=== PATIENT | male | born 1945 | race Caucasian/White ===

== ENCOUNTER 2022-07-07 10:14 | Inpatient (IN) | payer MEDICARE, MEDICAID ==
[~2022-07-07] VITALS: Ht 160 cm; Wt 95.3 kg
[2022-07-07 11:10] LABS: BASOPHILS % 0.5 % (0.0-2.0); EOSINOPHILS % 2.4 % (0.0-5.0); HEMATOCRIT. 45.7 % (42.0-52.0); HEMOGLOBIN. 14.5 g/dL (14.0-18.0); LYMPHOCYTES % 14.9 % (20.0-50.0); MEAN CORPUSCULAR HEMOGLOBIN 31.3 pg (28.0-32.0); MEAN CORPUSCULAR VOLUME 98.4 fL (80.0-94.0); MEAN PLATELET VOLUME 9.4 fl (7.4-10.4); MONOCYTES % 13.8 % (2.0-8.0); NEUTROPHILS % 68.4 % (40.0-76.0); PLATELET 155 x1000/uL (130-400); RED BLOOD CELL COUNT 4.64 mill/uL (4.7-6.1); RED CELL DISTRIBUTION WIDTH 14.3 % (11.6-14.6)
[2022-07-07 11:17] LABS: CHLORIDE 112 mEq/L (98-107)
[2022-07-07 11:19] LABS: INR 1.2; PROTHROMBIN TIME 12.3 sec (9.6-11.0)
[2022-07-07] MEDS ORDERED: CALCIUM GLUCONATE 100MG/ML 10ML VIAL IV ONE (12:00)
[2022-07-07] MEDS ORDERED: FUROSEMIDE 40MG/4ML VIAL IV ONE (13:15)
[2022-07-07] MEDS ORDERED: NITROGLYCERIN OINT 1GM/INCH UDPKT TD ONE (13:15)
[2022-07-07] MEDS ORDERED: ASPIRIN 325MG EC TABLET PO ONE (13:30)
[2022-07-07] MEDS ORDERED: IPRATROPIUM/ALBUTEROL 0.5-3(2.5)MG/3ML NEB HHN PRN (15:00)
[2022-07-07] MEDS ORDERED: GUAIFENESIN 200MG/10ML SUGAR FREE UDC PO PRN (15:00)
[2022-07-07] MEDS ORDERED: ONDANSETRON HCL 4MG/2ML INJ IV PRN (15:00)
[2022-07-07] MEDS ORDERED: MAGNESIUM/ALUMINUM HYDROXIDE/SIMETHICONE 30ML UDC PO PRN (15:00)
[2022-07-07] MEDS ORDERED: DIPHENHYDRAMINE 50MG/ML VIAL IV PRN (15:00)
[2022-07-07] MEDS ORDERED: ACETAMINOPHEN 325MG TABLET PO PRN (15:00)
[2022-07-07] MEDS ORDERED: CLONIDINE 0.1MG TABLET PO PRN (15:00)
[2022-07-07] MEDS ORDERED: DOCUSATE SODIUM 100MG CAPSULE PO PRN (15:00)
[2022-07-07] MEDS ORDERED: IOHEXOL-350 100 ML BOTTLE ONE (17:05)
[2022-07-07] MEDS ORDERED: FUROSEMIDE 40MG/4ML VIAL IV SCH (17:15)
[2022-07-07] MEDS: POTASSIUM CHLORIDE 20MEQ TABLET SR PO SCH (17:19)
[2022-07-07] MEDS: FUROSEMIDE 40MG/4ML VIAL IV SCH (17:21)
[2022-07-07] MEDS ORDERED: HYDROCODONE/ACETAMINOPHEN 5/325MG TABLET PO PRN (17:30)
[2022-07-07] MEDS ORDERED: NALOXONE HCL 0.4MG/ML VIAL IV PRN (17:30)
[2022-07-07 17:31] LABS: CLARITY URINE CLEAR (CLEAR); COLOR URINE YELLOW (YELLOW); KETONES URINE NEGATIVE (NEGATIVE); LEUKOCYTE ESTERASE URINE NEGATIVE (NEGATIVE); NITRITE URINE NEGATIVE (NEGATIVE); OCCULT BLOOD URINE NEGATIVE (NEGATIVE); PROTEIN URINE NEGATIVE (NEGATIVE); SPECIFIC GRAVITY URINE 1.006 (1.005-1.030); UROBILINOGEN URINE 0.2 E.U./dL (0.2-1.0)
[2022-07-07 17:52] LABS: *AMPHETAMINES SCREEN URINE NEGATIVE (NEGATIVE); *BARBITURATES SCREEN URINE NEGATIVE (NEGATIVE); *BENZODIAZEPINES SCREEN URINE NEGATIVE (NEGATIVE); *COCAINE SCREEN URINE NEGATIVE (NEGATIVE); CANNABINOID URINE SCREEN NEGATIVE (NEGATIVE); METHADONE URINE SCREEN NEGATIVE (NEGATIVE); OPIATES URINE SCREEN NEGATIVE (NEGATIVE); PHENCYCLIDINE URINE SCREEN NEGATIVE (NEGATIVE)
[2022-07-07] MEDS: METOPROLOL TARTRATE 25MG TABLET PO SCH (21:34)
[2022-07-07] MEDS: FAMOTIDINE 20MG TABLET PO SCH (21:35)
[2022-07-07] MEDS: ENOXAPARIN 30MG/0.3ML SYR SUBCUT SCH (21:35)
[2022-07-08] VITALS: BP 108/70
[2022-07-08 01:31] LABS: CREATINE KINASE 133 IU/L (39-308)
[2022-07-08] MEDS ORDERED: ATOR40TA70 PO (03:14)
[2022-07-08] MEDS ORDERED: METO25TA6 PO (03:14)
[2022-07-08] MEDS ORDERED: LOSA50TA41 PO (03:14)
[2022-07-08] MEDS ORDERED: TAMS-11 PO (03:15)
[2022-07-08 04:00] VITALS: BP 121/63
[2022-07-08] MEDS: FUROSEMIDE 40MG/4ML VIAL IV SCH ×2 (07:00→16:54)
[2022-07-08 07:11] LABS: HEMATOCRIT. 45.4 % (42.0-52.0); HEMOGLOBIN. 14.7 g/dL (14.0-18.0); MEAN CORPUSCULAR HEMOGLOBIN 31.7 pg (28.0-32.0); MEAN CORPUSCULAR VOLUME 97.9 fL (80.0-94.0); PLATELET 148 x1000/uL (130-400); RED BLOOD CELL COUNT 4.64 mill/uL (4.7-6.1); RED CELL DISTRIBUTION WIDTH 14.3 % (11.6-14.6)
[2022-07-08 07:22] LABS: CHLORIDE 92 mEq/L (98-107)
[2022-07-08 07:39] LABS: CREATINE KINASE 121 IU/L (39-308)
[2022-07-08 07:40] LABS: T4 FREE 1.06 ng/dL (0.76-1.46)
[2022-07-08 08:00] VITALS: BP 100/49
[2022-07-08] MEDS ORDERED: ASPIRIN 325MG EC TABLET PO SCH (09:00)
[2022-07-08] MEDS: METOPROLOL TARTRATE 25MG TABLET PO SCH ×2 (09:00→20:38)
[2022-07-08] MEDS ORDERED: LOSARTAN POTASSIUM 50 MG TABLET PO SCH (09:00)
[2022-07-08] MEDS: ENOXAPARIN 30MG/0.3ML SYR SUBCUT SCH (09:13)
[2022-07-08] MEDS: POTASSIUM CHLORIDE 20MEQ TABLET SR PO SCH (09:13)
[2022-07-08] MEDS: TAMSULOSIN HCL 0.4MG SR CAPSULE PO SCH (09:14)
[2022-07-08 12:00] VITALS: BP 110/50
[2022-07-08 14:01] LABS: PLATELET ESTIMATE NORMAL
[2022-07-08] MEDS ORDERED: CALCIUM GLUCONATE 1GM PREMIX 50 ML IV ONE (15:00)
[2022-07-08] MEDS ORDERED: MECLIZINE 12.5MG TABLET PO PRN (15:30)
[2022-07-08 16:00] VITALS: BP 96/51
[2022-07-08] MEDS ORDERED: POTASSIUM CHLORIDE 20MEQ TABLET SR PO SCH (17:00)
[2022-07-08 20:00] VITALS: BP 94/51
[2022-07-08] MEDS: FAMOTIDINE 20MG TABLET PO SCH (20:39)
[2022-07-08] MEDS: ACETAMINOPHEN 325MG TABLET PO PRN (20:40)
[2022-07-09] VITALS: BP 103/51
[2022-07-09 04:00] VITALS: BP_SYST 104; BP_SYST 108; BP_SYST 91; BP_DIAS 49; BP_DIAS 58; BP_DIAS 62
[2022-07-09] MEDS: FUROSEMIDE 40MG/4ML VIAL IV SCH (06:11)
[2022-07-09 07:05] LABS: HEMATOCRIT. 44.5 % (42.0-52.0); HEMOGLOBIN. 14.3 g/dL (14.0-18.0); MEAN CORPUSCULAR HEMOGLOBIN 31.4 pg (28.0-32.0); MEAN CORPUSCULAR VOLUME 97.9 fL (80.0-94.0); MEAN PLATELET VOLUME 9.2 fl (7.4-10.4); PLATELET 154 x1000/uL (130-400); RED BLOOD CELL COUNT 4.55 mill/uL (4.7-6.1); RED CELL DISTRIBUTION WIDTH 13.9 % (11.6-14.6)
[2022-07-09 07:15] LABS: CHLORIDE 92 mEq/L (98-107)
[2022-07-09] MEDS ORDERED: SODIUM POLYSTYRENE SULFONATE 15 G/60 ML BOT PO NR (09:00)
[2022-07-09 09:13] VITALS: BP 120/74
[2022-07-09] MEDS: LOSARTAN POTASSIUM 25 MG TABLET PO SCH (09:15)
[2022-07-09] MEDS: TAMSULOSIN HCL 0.4MG SR CAPSULE PO SCH (09:15)
[2022-07-09] MEDS: METOPROLOL TARTRATE 25MG TABLET PO SCH ×2 (09:19→21:00)
[2022-07-09] MEDS: ENOXAPARIN 40MG/0.4ML SYR SUBCUT SCH (09:20)
[2022-07-09 10:51] LABS: BG BASE EXCESS 20.1 mmol/L (-2.0-2.0); BG CARBOXYHEMOGLOBIN 2.4 % (0.5-1.5); BG DEOXYHEMOGLOBIN 23.5 % (0.0-5.0); BG HCO3 ACT 52.1 mmol/L (22.0-26.0); BG METHEMOGLOBIN 0.3 % (0.0-1.5); BG OXYGEN SATURATION 75.8 % (92.0-98.5); BG OXYHEMOGLOBIN 73.8 % (94.0-97.0); BG PCO2 97.5 mmHg (35.0-45.0); BG PH 7.346 (7.350-7.450); BG PO2 44.3 mmHg (75.0-100.0); BG SAMPLE SITE RIGHT RADIAL; BG TOTAL HEMOGLOBIN 15.6 g/dL (12.0-18.0); BG VENT MODE ROOM AIR
[2022-07-09 12:00] VITALS: BP 116/68
[2022-07-09 16:00] VITALS: BP 117/63
[2022-07-09] MEDS: FUROSEMIDE 40MG TABLET PO SCH (17:52)
[2022-07-09 20:00] VITALS: BP 100/61
[2022-07-09] MEDS: FAMOTIDINE 20MG TABLET PO SCH (21:00)
[2022-07-09 23:29] LABS: PLATELET ESTIMATE NORMAL
[2022-07-10] VITALS: BP 126/70
[2022-07-10 04:00] VITALS: BP 126/79
[2022-07-10] MEDS: FUROSEMIDE 40MG TABLET PO SCH ×2 (05:50→08:37)
[2022-07-10 06:44] LABS: CHLORIDE 89 mEq/L (98-107)
[2022-07-10 06:58] LABS: PHOSPHORUS 3.6 mg/dL (2.5-4.9)
[2022-07-10 07:26] LABS: HEMATOCRIT. 43.7 % (42.0-52.0); HEMOGLOBIN. 14.1 g/dL (14.0-18.0); MEAN CORPUSCULAR HEMOGLOBIN 31.5 pg (28.0-32.0); MEAN CORPUSCULAR VOLUME 97.1 fL (80.0-94.0); MEAN PLATELET VOLUME 10.1 fl (7.4-10.4); PLATELET 132 x1000/uL (130-400); RED CELL DISTRIBUTION WIDTH 14.1 % (11.6-14.6)
[2022-07-10] MEDS ORDERED: NITROGLYCERIN 0.4MG TABLET SL SL PRN (08:00)
[2022-07-10 08:22] VITALS: BP 96/54
[2022-07-10] MEDS: LOSARTAN POTASSIUM 25 MG TABLET PO SCH (08:35)
[2022-07-10] MEDS: METOPROLOL TARTRATE 25MG TABLET PO SCH ×2 (08:35→21:04)
[2022-07-10] MEDS: ENOXAPARIN 40MG/0.4ML SYR SUBCUT SCH (08:37)
[2022-07-10] MEDS: TAMSULOSIN HCL 0.4MG SR CAPSULE PO SCH (08:37)
[2022-07-10] MEDS: IPRATROPIUM/ALBUTEROL 0.5-3(2.5)MG/3ML NEB HHN SCH ×2 (09:27→14:05)
[2022-07-10 09:28] LABS: BG BASE EXCESS 20.6 mmol/L (-2.0-2.0); BG CARBOXYHEMOGLOBIN 2.6 % (0.5-1.5); BG DEOXYHEMOGLOBIN 3.6 % (0.0-5.0); BG FRACTION INSPIRED OXYGEN 36; BG HCO3 ACT 53.4 mmol/L (22.0-26.0); BG METHEMOGLOBIN 0.2 % (0.0-1.5); BG OXYGEN SATURATION 96.3 % (92.0-98.5); BG OXYHEMOGLOBIN 93.6 % (94.0-97.0); BG PCO2 102.4 mmHg (35.0-45.0); BG PH 7.335 (7.350-7.450); BG PO2 91.3 mmHg (75.0-100.0); BG SAMPLE SITE RIGHT BRACHIAL; BG VENT MODE NASAL CANNULA
[2022-07-10] MEDS ORDERED: PREDNISONE 20MG TABLET PO SCH (11:15)
[2022-07-10] MEDS: AZITHROMYCIN 500 MG in DEXT 5% WATER 250 ML IV SCH (12:01)
[2022-07-10 12:12] VITALS: BP 109/58
[2022-07-10] MEDS ORDERED: ACETAZOLAMIDE SODIUM 500MG/VIAL IV NR (14:00)
[2022-07-10 14:28] LABS: PLATELET ESTIMATE NORMAL
[2022-07-10 16:00] VITALS: BP 99/48
[2022-07-10] MEDS: FAMOTIDINE 20MG TABLET PO SCH (21:04)
[2022-07-11] VITALS: BP 105/63
[2022-07-11 04:00] VITALS: BP 92/56
[2022-07-11 06:39] LABS: BASOPHILS % 0.2 % (0.0-2.0); HEMOGLOBIN. 14.7 g/dL (14.0-18.0); LYMPHOCYTES % 9.8 % (20.0-50.0); MEAN CORPUSCULAR HEMOGLOBIN 31.9 pg (28.0-32.0); MEAN CORPUSCULAR VOLUME 97.8 fL (80.0-94.0); MEAN PLATELET VOLUME 10.6 fl (7.4-10.4); PLATELET 166 x1000/uL (130-400)
[2022-07-11 06:41] LABS: CHLORIDE 89 mEq/L (98-107)
[2022-07-11 08:00] VITALS: BP 91/67
[2022-07-11 08:00] LABS: BG BASE EXCESS 17.7 mmol/L (-2.0-2.0); BG CARBOXYHEMOGLOBIN 1.7 % (0.5-1.5); BG DEOXYHEMOGLOBIN 26.6 % (0.0-5.0); BG FRACTION INSPIRED OXYGEN 21; BG HCO3 ACT 49.7 mmol/L (22.0-26.0); BG METHEMOGLOBIN 0.4 % (0.0-1.5); BG OXYGEN SATURATION 72.8 % (92.0-98.5); BG OXYHEMOGLOBIN 71.3 % (94.0-97.0); BG PCO2 98.2 mmHg (35.0-45.0); BG PH 7.322 (7.350-7.450); BG PO2 39.8 mmHg (75.0-100.0); BG SAMPLE SITE LEFT BRACHIAL; BG TOTAL HEMOGLOBIN 15.5 g/dL (12.0-18.0); BG VENT MODE ROOM AIR
[2022-07-11] MEDS: LOSARTAN POTASSIUM 25 MG TABLET PO SCH (09:00)
[2022-07-11] MEDS: METOPROLOL TARTRATE 25MG TABLET PO SCH ×2 (09:00→21:11)
[2022-07-11] MEDS: PREDNISONE 20MG TABLET PO SCH (10:47)
[2022-07-11] MEDS: TAMSULOSIN HCL 0.4MG SR CAPSULE PO SCH (10:49)
[2022-07-11] MEDS: ENOXAPARIN 40MG/0.4ML SYR SUBCUT SCH (10:49)
[2022-07-11 12:00] VITALS: BP 112/61
[2022-07-11] MEDS: AZITHROMYCIN 500 MG in DEXT 5% WATER 250 ML IV SCH (13:08)
[2022-07-11 14:17] LABS: BG DEOXYHEMOGLOBIN 4.1 % (0.0-5.0); BG FRACTION INSPIRED OXYGEN 50; BG HCO3 ACT 50.1 mmol/L (22.0-26.0); BG METHEMOGLOBIN 0.2 % (0.0-1.5); BG OXYGEN SATURATION 95.8 % (92.0-98.5); BG OXYHEMOGLOBIN 93.7 % (94.0-97.0); BG PCO2 111.3 mmHg (35.0-45.0); BG PH 7.271 (7.350-7.450); BG PO2 87.3 mmHg (75.0-100.0); BG SAMPLE SITE LEFT BRACHIAL; BG VENT MODE VAPOTHERM
[2022-07-11 16:00] VITALS: BP 111/67
[2022-07-11 20:00] VITALS: BP 105/59
[2022-07-11] MEDS: FAMOTIDINE 20MG TABLET PO SCH (21:11)
[2022-07-11] MEDS: MEMANTINE HCL 10MG TABLET PO SCH (21:11)
[2022-07-12] VITALS: BP 108/58
[2022-07-12 04:00] VITALS: BP 111/55
[2022-07-12 07:30] LABS: CHLORIDE 93 mEq/L (98-107)
[2022-07-12 07:33] LABS: BASOPHILS % 0.2 % (0.0-2.0); EOSINOPHILS % 0.1 % (0.0-5.0); HEMATOCRIT. 43.4 % (42.0-52.0); HEMOGLOBIN. 14.2 g/dL (14.0-18.0); LYMPHOCYTES % 9.6 % (20.0-50.0); MEAN CORPUSCULAR HEMOGLOBIN 31.6 pg (28.0-32.0); MEAN CORPUSCULAR VOLUME 96.8 fL (80.0-94.0); MEAN PLATELET VOLUME 10.1 fl (7.4-10.4); MONOCYTES % 10.7 % (2.0-8.0); NEUTROPHILS % 79.4 % (40.0-76.0); PLATELET 177 x1000/uL (130-400); RED BLOOD CELL COUNT 4.48 mill/uL (4.7-6.1); RED CELL DISTRIBUTION WIDTH 14.3 % (11.6-14.6)
[2022-07-12 08:00] VITALS: BP 105/67
[2022-07-12] MEDS: LOSARTAN POTASSIUM 25 MG TABLET PO SCH (08:55)
[2022-07-12] MEDS: METOPROLOL TARTRATE 25MG TABLET PO SCH ×2 (08:55→20:50)
[2022-07-12] MEDS: MEMANTINE HCL 10MG TABLET PO SCH (08:56)
[2022-07-12] MEDS: PREDNISONE 20MG TABLET PO SCH (08:57)
[2022-07-12] MEDS: ENOXAPARIN 30MG/0.3ML SYR SUBCUT SCH ×2 (08:57→20:51)
[2022-07-12] MEDS: TAMSULOSIN HCL 0.4MG SR CAPSULE PO SCH (08:57)
[2022-07-12] MEDS: ACETAMINOPHEN 325MG TABLET PO PRN (09:02)
[2022-07-12 11:25] LABS: BG BASE EXCESS 13.3 mmol/L (-2.0-2.0); BG CARBOXYHEMOGLOBIN 1.7 % (0.5-1.5); BG DEOXYHEMOGLOBIN 5.4 % (0.0-5.0); BG FRACTION INSPIRED OXYGEN 40; BG HCO3 ACT 43.1 mmol/L (22.0-26.0); BG METHEMOGLOBIN 0.3 % (0.0-1.5); BG OXYGEN SATURATION 94.5 % (92.0-98.5); BG OXYHEMOGLOBIN 92.6 % (94.0-97.0); BG PCO2 80.4 mmHg (35.0-45.0); BG PH 7.347 (7.350-7.450); BG PO2 75.4 mmHg (75.0-100.0); BG SAMPLE SITE LEFT BRACHIAL; BG TOTAL HEMOGLOBIN 14.7 g/dL (12.0-18.0); BG VENT MODE HIGH FLOW
[2022-07-12 12:00] VITALS: BP 100/47
[2022-07-12] MEDS: AZITHROMYCIN 500 MG in DEXT 5% WATER 250 ML IV SCH (13:12)
[2022-07-12] MEDS: IPRATROPIUM/ALBUTEROL 0.5-3(2.5)MG/3ML NEB HHN SCH ×2 (14:35→21:55)
[2022-07-12 16:00] VITALS: BP 101/58
[2022-07-12] MEDS ORDERED: ACETAZOLAMIDE SODIUM 500MG/VIAL IV NR (18:00)
[2022-07-12 20:20] VITALS: BP 109/57
[2022-07-12] MEDS: FAMOTIDINE 20MG TABLET PO SCH (20:49)
[2022-07-13] VITALS: BP 111/63
[2022-07-13] MEDS: IPRATROPIUM/ALBUTEROL 0.5-3(2.5)MG/3ML NEB HHN SCH ×4 (01:11→19:57)
[2022-07-13 07:00] LABS: BASOPHILS % 0.4 % (0.0-2.0); EOSINOPHILS % 0.1 % (0.0-5.0); HEMATOCRIT. 44.1 % (42.0-52.0); HEMOGLOBIN. 14.3 g/dL (14.0-18.0); LYMPHOCYTES % 11.5 % (20.0-50.0); MEAN CORPUSCULAR HEMOGLOBIN 31.6 pg (28.0-32.0); MEAN CORPUSCULAR VOLUME 97.5 fL (80.0-94.0); MONOCYTES % 11.9 % (2.0-8.0); NEUTROPHILS % 76.1 % (40.0-76.0); RED BLOOD CELL COUNT 4.52 mill/uL (4.7-6.1); RED CELL DISTRIBUTION WIDTH 13.8 % (11.6-14.6)
[2022-07-13 07:25] LABS: CHLORIDE 94 mEq/L (98-107)
[2022-07-13 08:00] VITALS: BP 116/68
[2022-07-13 08:13] LABS: BG CARBOXYHEMOGLOBIN 1.4 % (0.5-1.5); BG DEOXYHEMOGLOBIN 9.8 % (0.0-5.0); BG HCO3 ACT 33.3 mmol/L (22.0-26.0); BG METHEMOGLOBIN 0.1 % (0.0-1.5); BG OXYGEN SATURATION 90.1 % (92.0-98.5); BG OXYHEMOGLOBIN 88.7 % (94.0-97.0); BG PCO2 64.4 mmHg (35.0-45.0); BG PH 7.332 (7.350-7.450); BG PO2 63.8 mmHg (75.0-100.0); BG SAMPLE SITE RIGHT BRACHIAL; BG TOTAL HEMOGLOBIN 15.9 g/dL (12.0-18.0); BG VENT MODE VAPOTHERM
[2022-07-13] MEDS: LOSARTAN POTASSIUM 25 MG TABLET PO SCH (09:00)
[2022-07-13] MEDS: METOPROLOL TARTRATE 25MG TABLET PO SCH ×2 (09:00→20:33)
[2022-07-13] MEDS: PREDNISONE 20MG TABLET PO SCH (09:40)
[2022-07-13] MEDS: TAMSULOSIN HCL 0.4MG SR CAPSULE PO SCH (09:40)
[2022-07-13] MEDS: ENOXAPARIN 30MG/0.3ML SYR SUBCUT SCH ×2 (09:43→20:56)
[2022-07-13] MEDS ORDERED: DEXTROSE 50% WATER 50ML SYRINGE IV PRN (11:15)
[2022-07-13 12:00] VITALS: BP 109/55
[2022-07-13] MEDS: BLOOD SUGAR DIAGNOSTIC STRIP TEST SCH ×3 (12:10→20:34)
[2022-07-13] MEDS: INSULIN LISPRO 100 UNITS/ML SUBCUT SCH ×3 (12:40→21:00)
[2022-07-13] MEDS ORDERED: FUROSEMIDE 40MG/4ML VIAL IVP NR (13:30)
[2022-07-13] MEDS: IPRATROPIUM/ALBUTEROL 0.5-3(2.5)MG/3ML NEB HHN PRN (15:00)
[2022-07-13 16:00] VITALS: BP 100/50
[2022-07-13] MEDS: AZITHROMYCIN 500 MG TABLET PO SCH (16:07)
[2022-07-13] MEDS: BUDESONIDE 0.5MG/2ML NEB HHN SCH (19:55)
[2022-07-13 20:00] VITALS: BP 107/57
[2022-07-13] MEDS: FAMOTIDINE 20MG TABLET PO SCH (20:55)
[2022-07-14] VITALS: BP 123/61
[2022-07-14] MEDS: IPRATROPIUM/ALBUTEROL 0.5-3(2.5)MG/3ML NEB HHN SCH ×3 (01:59→13:16)
[2022-07-14 04:00] VITALS: BP 113/53
[2022-07-14] MEDS: BLOOD SUGAR DIAGNOSTIC STRIP TEST SCH ×4 (05:40→20:12)
[2022-07-14] MEDS: INSULIN LISPRO 100 UNITS/ML SUBCUT SCH ×4 (06:31→21:08)
[2022-07-14 07:13] LABS: BASOPHILS % 0.6 % (0.0-2.0); EOSINOPHILS % 0.2 % (0.0-5.0); HEMATOCRIT. 45.4 % (42.0-52.0); HEMOGLOBIN. 14.7 g/dL (14.0-18.0); LYMPHOCYTES % 12.3 % (20.0-50.0); MEAN CORPUSCULAR HEMOGLOBIN 31.2 pg (28.0-32.0); MEAN CORPUSCULAR VOLUME 96.2 fL (80.0-94.0); MEAN PLATELET VOLUME 9.7 fl (7.4-10.4); MONOCYTES % 11.6 % (2.0-8.0); NEUTROPHILS % 75.3 % (40.0-76.0); PLATELET 185 x1000/uL (130-400); RED BLOOD CELL COUNT 4.72 mill/uL (4.7-6.1); RED CELL DISTRIBUTION WIDTH 14.1 % (11.6-14.6)
[2022-07-14 07:39] LABS: CHLORIDE 97 mEq/L (98-107)
[2022-07-14] MEDS: IPRATROPIUM/ALBUTEROL 0.5-3(2.5)MG/3ML NEB HHN PRN ×2 (07:52→20:00)
[2022-07-14] MEDS: BUDESONIDE 0.5MG/2ML NEB HHN SCH ×2 (07:52→19:59)
[2022-07-14 08:00] VITALS: BP 110/74
[2022-07-14] MEDS: LOSARTAN POTASSIUM 25 MG TABLET PO SCH (09:15)
[2022-07-14] MEDS: TAMSULOSIN HCL 0.4MG SR CAPSULE PO SCH (09:15)
[2022-07-14] MEDS: METOPROLOL TARTRATE 25MG TABLET PO SCH ×2 (09:16→21:09)
[2022-07-14] MEDS: PREDNISONE 20MG TABLET PO SCH (09:16)
[2022-07-14] MEDS: ENOXAPARIN 30MG/0.3ML SYR SUBCUT SCH ×2 (09:16→21:09)
[2022-07-14] MEDS ORDERED: METOLAZONE 2.5MG TABLET PO NR (09:45)
[2022-07-14 10:14] LABS: BG BASE EXCESS 10.7 mmol/L (-2.0-2.0); BG CARBOXYHEMOGLOBIN 1.7 % (0.5-1.5); BG DEOXYHEMOGLOBIN 13.4 % (0.0-5.0); BG FRACTION INSPIRED OXYGEN 21; BG HCO3 ACT 39.7 mmol/L (22.0-26.0); BG METHEMOGLOBIN 0.3 % (0.0-1.5); BG OXYGEN SATURATION 86.3 % (92.0-98.5); BG OXYHEMOGLOBIN 84.6 % (94.0-97.0); BG PCO2 70.8 mmHg (35.0-45.0); BG PH 7.367 (7.350-7.450); BG PO2 53.4 mmHg (75.0-100.0); BG SAMPLE SITE LEFT BRACHIAL; BG TOTAL HEMOGLOBIN 16.4 g/dL (12.0-18.0); BG VENT MODE ROOM AIR
[2022-07-14 12:00] VITALS: BP 96/54
[2022-07-14] MEDS: AZITHROMYCIN 500 MG TABLET PO SCH (15:13)
[2022-07-14 16:00] VITALS: BP 117/65
[2022-07-14 20:00] VITALS: BP 114/65
[2022-07-14] MEDS: FAMOTIDINE 20MG TABLET PO SCH (21:08)
[2022-07-15] VITALS: BP 127/77
[2022-07-15] MEDS: IPRATROPIUM/ALBUTEROL 0.5-3(2.5)MG/3ML NEB HHN SCH ×4 (02:30→19:50)
[2022-07-15 04:00] VITALS: BP 111/60
[2022-07-15] MEDS: BLOOD SUGAR DIAGNOSTIC STRIP TEST SCH ×4 (06:30→20:28)
[2022-07-15] MEDS: INSULIN LISPRO 100 UNITS/ML SUBCUT SCH ×4 (06:30→20:27)
[2022-07-15 07:37] LABS: BASOPHILS % 0.5 % (0.0-2.0); EOSINOPHILS % 0.2 % (0.0-5.0); HEMATOCRIT. 46.1 % (42.0-52.0); HEMOGLOBIN. 15.2 g/dL (14.0-18.0); MEAN CORPUSCULAR HEMOGLOBIN 31.9 pg (28.0-32.0); MEAN CORPUSCULAR VOLUME 96.4 fL (80.0-94.0); MEAN PLATELET VOLUME 9.7 fl (7.4-10.4); MONOCYTES % 11.7 % (2.0-8.0); NEUTROPHILS % 72.6 % (40.0-76.0); PLATELET 144 x1000/uL (130-400); RED BLOOD CELL COUNT 4.78 mill/uL (4.7-6.1); RED CELL DISTRIBUTION WIDTH 14.1 % (11.6-14.6)
[2022-07-15 08:00] VITALS: BP 94/46
[2022-07-15 08:13] LABS: CHLORIDE 96 mEq/L (98-107)
[2022-07-15] MEDS: PREDNISONE 20MG TABLET PO SCH (08:40)
[2022-07-15] MEDS: ENOXAPARIN 30MG/0.3ML SYR SUBCUT SCH ×2 (08:40→20:28)
[2022-07-15] MEDS: METOPROLOL TARTRATE 25MG TABLET PO SCH ×2 (08:41→20:29)
[2022-07-15] MEDS: LOSARTAN POTASSIUM 25 MG TABLET PO SCH (08:41)
[2022-07-15] MEDS: TAMSULOSIN HCL 0.4MG SR CAPSULE PO SCH (08:41)
[2022-07-15] MEDS: BUDESONIDE 0.5MG/2ML NEB HHN SCH ×2 (08:49→19:51)
[2022-07-15 09:27] LABS: BG BASE EXCESS 7.6 mmol/L (-2.0-2.0); BG CARBOXYHEMOGLOBIN 1.7 % (0.5-1.5); BG DEOXYHEMOGLOBIN 8.2 % (0.0-5.0); BG FRACTION INSPIRED OXYGEN 24; BG HCO3 ACT 36.2 mmol/L (22.0-26.0); BG METHEMOGLOBIN 0.4 % (0.0-1.5); BG OXYGEN SATURATION 91.6 % (92.0-98.5); BG OXYHEMOGLOBIN 89.7 % (94.0-97.0); BG PCO2 66.7 mmHg (35.0-45.0); BG PH 7.353 (7.350-7.450); BG PO2 66.5 mmHg (75.0-100.0); BG SAMPLE SITE RIGHT RADIAL; BG VENT MODE HIGH FLOW
[2022-07-15 12:00] VITALS: BP 91/42
[2022-07-15] MEDS ORDERED: ACETAZOLAMIDE SODIUM 500MG/VIAL IV SCH (13:30)
[2022-07-15] MEDS: AZITHROMYCIN 500 MG TABLET PO SCH (14:39)
[2022-07-15 16:00] VITALS: BP 97/56
[2022-07-15 20:00] VITALS: BP 104/59
[2022-07-15] MEDS: FAMOTIDINE 20MG TABLET PO SCH (20:26)
[2022-07-16] VITALS: BP 118/67
[2022-07-16] MEDS: IPRATROPIUM/ALBUTEROL 0.5-3(2.5)MG/3ML NEB HHN SCH ×4 (02:02→20:50)
[2022-07-16 04:00] VITALS: BP 110/67
[2022-07-16] MEDS: INSULIN LISPRO 100 UNITS/ML SUBCUT SCH ×4 (06:00→21:00)
[2022-07-16] MEDS: BLOOD SUGAR DIAGNOSTIC STRIP TEST SCH ×4 (06:00→21:17)
[2022-07-16] MEDS: ENOXAPARIN 30MG/0.3ML SYR SUBCUT SCH ×2 (08:27→21:16)
[2022-07-16] MEDS: PREDNISONE 20MG TABLET PO SCH (08:27)
[2022-07-16] MEDS: TAMSULOSIN HCL 0.4MG SR CAPSULE PO SCH (08:27)
[2022-07-16] MEDS: METOPROLOL TARTRATE 25MG TABLET PO SCH ×2 (08:28→21:00)
[2022-07-16] MEDS: LOSARTAN POTASSIUM 25 MG TABLET PO SCH (08:28)
[2022-07-16 08:43] VITALS: BP 115/77
[2022-07-16] MEDS: BUDESONIDE 0.5MG/2ML NEB HHN SCH (08:57)
[2022-07-16 10:04] LABS: BG CARBOXYHEMOGLOBIN 1.8 % (0.5-1.5); BG DEOXYHEMOGLOBIN 6.7 % (0.0-5.0); BG FRACTION INSPIRED OXYGEN 24; BG HCO3 ACT 34.9 mmol/L (22.0-26.0); BG METHEMOGLOBIN 0.3 % (0.0-1.5); BG OXYGEN SATURATION 93.2 % (92.0-98.5); BG OXYHEMOGLOBIN 91.2 % (94.0-97.0); BG PCO2 62.9 mmHg (35.0-45.0); BG PH 7.362 (7.350-7.450); BG PO2 69.7 mmHg (75.0-100.0); BG SAMPLE SITE RIGHT RADIAL; BG TOTAL HEMOGLOBIN 15.7 g/dL (12.0-18.0); BG VENT MODE HIGH FLOW
[2022-07-16 12:00] VITALS: BP 100/53
[2022-07-16 16:00] VITALS: BP 112/64
[2022-07-16 17:07] LABS: HEMATOCRIT. 45.6 % (42.0-52.0); HEMOGLOBIN. 14.9 g/dL (14.0-18.0); MEAN CORPUSCULAR HEMOGLOBIN 31.8 pg (28.0-32.0); MEAN CORPUSCULAR VOLUME 97.2 fL (80.0-94.0); MEAN PLATELET VOLUME 9.5 fl (7.4-10.4); PLATELET 197 x1000/uL (130-400); RED BLOOD CELL COUNT 4.69 mill/uL (4.7-6.1); RED CELL DISTRIBUTION WIDTH 14.3 % (11.6-14.6)
[2022-07-16 17:31] LABS: CHLORIDE 95 mEq/L (98-107)
[2022-07-16 20:00] VITALS: BP 101/77
[2022-07-16] MEDS: FAMOTIDINE 20MG TABLET PO SCH (21:17)
[2022-07-16 22:21] LABS: PLATELET ESTIMATE NORMAL
[2022-07-17] VITALS: BP 138/66
[2022-07-17 04:00] VITALS: BP 116/61
[2022-07-17] MEDS: IPRATROPIUM/ALBUTEROL 0.5-3(2.5)MG/3ML NEB HHN SCH ×4 (04:00→14:46)
[2022-07-17] MEDS: INSULIN LISPRO 100 UNITS/ML SUBCUT SCH ×2 (06:13→12:40)
[2022-07-17] MEDS: BLOOD SUGAR DIAGNOSTIC STRIP TEST SCH ×2 (06:13→12:52)
[2022-07-17 08:00] VITALS: BP 104/57
[2022-07-17] MEDS: LOSARTAN POTASSIUM 25 MG TABLET PO SCH (09:00)
[2022-07-17] MEDS: METOPROLOL TARTRATE 25MG TABLET PO SCH (09:00)
[2022-07-17] MEDS: TAMSULOSIN HCL 0.4MG SR CAPSULE PO SCH (09:00)
[2022-07-17 09:07] LABS: BG BASE EXCESS 11.3 mmol/L (-2.0-2.0); BG DEOXYHEMOGLOBIN 12.1 % (0.0-5.0); BG HCO3 ACT 41.5 mmol/L (22.0-26.0); BG METHEMOGLOBIN 0.3 % (0.0-1.5); BG OXYGEN SATURATION 87.7 % (92.0-98.5); BG OXYHEMOGLOBIN 86.6 % (94.0-97.0); BG PH 7.338 (7.350-7.450); BG PO2 53.3 mmHg (75.0-100.0); BG SAMPLE SITE RIGHT RADIAL; BG TOTAL HEMOGLOBIN 16.7 g/dL (12.0-18.0); BG VENT MODE ROOM AIR
[2022-07-17] MEDS: PREDNISONE 20MG TABLET PO SCH (11:08)
[2022-07-17] MEDS: ENOXAPARIN 30MG/0.3ML SYR SUBCUT SCH (11:09)
[2022-07-17 11:39] LABS: BASOPHILS % 0.4 % (0.0-2.0); EOSINOPHILS % 0.7 % (0.0-5.0); HEMATOCRIT. 46.4 % (42.0-52.0); HEMOGLOBIN. 15.2 g/dL (14.0-18.0); LYMPHOCYTES % 13.3 % (20.0-50.0); MEAN CORPUSCULAR HEMOGLOBIN 31.4 pg (28.0-32.0); MEAN CORPUSCULAR VOLUME 96.1 fL (80.0-94.0); MEAN PLATELET VOLUME 9.9 fl (7.4-10.4); MONOCYTES % 13.4 % (2.0-8.0); NEUTROPHILS % 72.2 % (40.0-76.0); PLATELET 198 x1000/uL (130-400); RED BLOOD CELL COUNT 4.82 mill/uL (4.7-6.1); RED CELL DISTRIBUTION WIDTH 14.3 % (11.6-14.6)
[2022-07-17 11:52] LABS: CHLORIDE 97 mEq/L (98-107); PHOSPHORUS 3.5 mg/dL (2.5-4.9)
[2022-07-17 12:00] VITALS: BP 110/68
[2022-07-17] MEDS ORDERED: UMEC1DIS INH (13:11)
[2022-07-17 15:07] VITALS: BP 110/68
== END 2022-07-17 16:55 | disposition home health service (06) | DRG 91 ==
LOC: ER 10:14 → 8WST 13:17 → EDBEDREQ 13:21 → EDBEDREQTM 13:21 → EDBEDREQ 13:27 → ENRESERV 22:13 → ER 22:51 → 8WST 07-12 21:58
PROVIDERS: ADMIT Hospitalist; ATTEND Hospitalist
PROC: 4A00X4Z Measurement of Central Nervous Electrical Activity, External Approach (ICD-10-PCS; 2022-07-08)
PROC: 5A0935A Assistance with Respiratory Ventilation, Less than 24 Consecutive Hours, High Flow/Velocity Cannula (ICD-10-PCS; principal; 2022-07-11)
PROC: 5A09357 Assistance with Respiratory Ventilation, Less than 24 Consecutive Hours, Continuous Positive Airway Pressure (ICD-10-PCS; 2022-07-11)
PROC: 5A0935A Assistance with Respiratory Ventilation, Less than 24 Consecutive Hours, High Flow/Velocity Cannula (ICD-10-PCS; 2022-07-12)
PROC: 5A0935A Assistance with Respiratory Ventilation, Less than 24 Consecutive Hours, High Flow/Velocity Cannula (ICD-10-PCS; 2022-07-14)
PROC: 5A0935A Assistance with Respiratory Ventilation, Less than 24 Consecutive Hours, High Flow/Velocity Cannula (ICD-10-PCS; 2022-07-14)
PROC: 5A0945A Assistance with Respiratory Ventilation, 24-96 Consecutive Hours, High Flow/Velocity Cannula (ICD-10-PCS; 2022-07-15)
DX: G92.8 Other toxic encephalopathy (principal); I50.43 Acute on chronic combined systolic (congestive) and diastolic (congestive) heart failure; J96.01 Acute respiratory failure with hypoxia; J96.02 Acute respiratory failure with hypercapnia; J44.1 Chronic obstructive pulmonary disease with (acute) exacerbation; E44.1 Mild protein-calorie malnutrition; E87.29 Other acidosis; I31.39 Other pericardial effusion (noninflammatory); E87.3 Alkalosis; I11.0 Hypertensive heart disease with heart failure; E78.5 Hyperlipidemia, unspecified; Z20.822 Contact with and (suspected) exposure to COVID-19; E83.51 Hypocalcemia; E11.51 Type 2 diabetes mellitus with diabetic peripheral angiopathy without gangrene; I25.10 Atherosclerotic heart disease of native coronary artery without angina pectoris; G47.33 Obstructive sleep apnea (adult) (pediatric); E11.65 Type 2 diabetes mellitus with hyperglycemia; R29.6 Repeated falls; E87.5 Hyperkalemia; F03.90 Unspecified dementia, unspecified severity, without behavioral disturbance, psychotic disturbance, mood disturbance, and anxiety; N40.0 Benign prostatic hyperplasia without lower urinary tract symptoms; Z95.0 Presence of cardiac pacemaker; I25.2 Old myocardial infarction; Z68.37 Body mass index [BMI] 37.0-37.9, adult; Z79.899 Other long term (current) drug therapy; Z87.891 Personal history of nicotine dependence
CPT/HCPCS: 36415; 36600; 70496; 70498; 71045; 80048; 80053; 80061; 80076; 80305; 81003; 82040; 82340; 82375; 82550; 82652; 82805; 82962; 83036; 83735; 83880; 83916; 83970; 84100; 84153; 84439; 84443; 84484; 85025; 87426; 92950; 93005; 93306; 93923; 93970; 94003; 94640; 94660; 97110; 97116; 97162; 97166; 97530; 99285; J0456; J0610; J1120; J1650; J1815; J1940; J7060; J7512; J7626; Q9967; G0103